=== PATIENT | male | born 1950 | race Caucasian/White ===

== ENCOUNTER 2019-07-03 05:48 | Day surgery (SDC) | payer OTHER ==
[~2019-07-03 05:48] MED LIST: XARELTO20 MG PO
[2019-07-03] MEDS ORDERED: DILT180 PO (06:43)
--- NOTE | 2019-07-03 07:00 | NUR ---
PT SEDATED WITH VERSED 4MG AND SUBLIMAZE 100MCG IVP FOR CARDIOVERSION. PT CARDIOVERTED /C 50J. SR 62BPM POST CARDIOVERSION.
--- NOTE | 2019-07-03 07:39 | NUR ---
PT AWAKE AND VERBALIZING WELL. SR 60BPM. AMB TO THE BATHROOM /S DIFFICULTY.
== END 2019-07-03 23:31 | disposition home or self-care (01) ==
LOC: MHTC 05:48
PROC: 5A2204Z Restoration of Cardiac Rhythm, Single (ICD-10-PCS; principal; 2019-07-03)
DX: I48.92 Unspecified atrial flutter (principal); I10 Essential (primary) hypertension; E78.5 Hyperlipidemia, unspecified; N40.0 Benign prostatic hyperplasia without lower urinary tract symptoms; Z79.01 Long term (current) use of anticoagulants; Z79.899 Other long term (current) drug therapy
CPT/HCPCS: 92960; 93005; 93010; 99152; J2250; J3010; J7030

== ENCOUNTER → 2021-11-18 | Outpatient (CLI) | payer OTHER ==
[~2021-11-18] MED LIST changes: +DILT180 PO
[2021-11-18 13:22] LABS: BASOPHILS ABSOLUTE AUTO 0.04 K/mm3 (0.00-0.23); BASOPHILS PERCENT AUTO 1 % (0-2); EOSINOPHILS ABSOLUTE AUTO 0.14 K/mm3 (0.00-0.68); EOSINOPHILS PERCENT AUTO 2 % (0-6); Hematocrit 45.7 % (37.0-53.0); IMMATURE GRAN ABSOLUTE AUTO 0.04 K/mm3 (0.00-0.10); IMMATURE GRAN PERCENT AUTO 1 % (0-1); LYMPHOCYTES ABSOLUTE AUTO 2.81 K/mm3 (0.84-5.20); LYMPHOCYTES PERCENT AUTO 35 % (21-46); MONOCYTES ABSOLUTE AUTO 0.77 K/mm3 (0.16-1.47); MONOCYTES PERCENT AUTO 10 % (4-13); Mean Corpuscular HGB Conc 32.8 g/dL (31.5-36.5); Mean Corpuscular Volume 85 fL (80-100); NEUTROPHILS ABSOLUTE AUTO 4.17 K/mm3 (1.96-9.15); NEUTROPHILS PERCENT AUTO 52 % (41-73); RDW Standard Deviation 43.8 fL (35.1-46.3); Red Blood Cell Count 5.35 M/mm3 (4.30-5.90); White Blood Cell Count 7.97 K/mm3 (4.00-11.30)
[2021-11-18 13:44] LABS: Mean Platelet Volume 12.1 fL (9.1-12.4); Platelet Count 182 K/mm3 (150-400)
[2021-11-18 14:21] LABS: Alanine Aminotransfer (ALT/SGP 15 U/L (12-78); Albumin, Blood 3.9 g/dL (3.4-5.0); Albumin/Globulin Ratio 1.1 (0.8-1.8); Alk Phos 69 U/L (50-136); Anion Gap 5 mmol/L (6-16); Aspartate Aminotrans (AST/SGOT 17 U/L (12-37); Blood Urea Nitrogen 18 mg/dL (8-24); Bun/Creatinine Ratio 23.9 (12.0-20.0); CHOL/HDL RATIO 4.1; CO2, Blood 27 mmol/L (21-32); Calcium, Blood 9.6 mg/dL (8.5-10.1); Chloride, Blood 107 mmol/L (98-108); Cholesterol 231 mg/dL (50-200); Creatinine, Blood 0.75 mg/dL (0.60-1.20); Globulin, Blood 3.6 g/dL (2.2-4.0); Glomerular Filtration Rate >60 (60-); Glucose, Blood 102 mg/dL (70-99); HDL Cholesterol 57 mg/dL (>39); LDL/HDL RATIO 2.3; Low Density Lipoprotein Chol 133 mg/dL (0-110); Potassium, Blood 4.4 mmol/L (3.5-5.5); Sodium, Blood 139 mmol/L (136-145); Total Protein, Blood 7.5 g/dL (6.4-8.2); Triglycerides 206 mg/dL (30-160); Very Low Density Lipoprot Chol 41 mg/dL (6-32)
== END ==
LOC: LAB SHORT 10:50 → LAB 10:50
PROVIDERS: Family Medicine
DX: Z12.5 Encounter for screening for malignant neoplasm of prostate (principal); Z00.00 Encounter for general adult medical examination without abnormal findings; Z13.29 Encounter for screening for other suspected endocrine disorder; E78.2 Mixed hyperlipidemia
CPT/HCPCS: 80053; 80061; 84443; 85025; G0103

== ENCOUNTER 2022-09-09 12:42 | Day surgery (SDC) | payer OTHER ==
[~2022-09-09] VITALS: Ht 182.9 cm; Wt 94.4 kg
== END 2022-09-09 14:48 | disposition home or self-care (01) ==
LOC: ORSCSDS 12:42
PROVIDERS: Student in an Organized Health Care Education/Training Program
PROC: 0DBM8ZX Excision of Descending Colon, Via Natural or Artificial Opening Endoscopic, Diagnostic (ICD-10-PCS; principal; 2022-09-09 14:00)
PROC: 0DBH8ZX Excision of Cecum, Via Natural or Artificial Opening Endoscopic, Diagnostic (ICD-10-PCS; principal; 2022-09-09 14:00)
PROC: 0DBN8ZX Excision of Sigmoid Colon, Via Natural or Artificial Opening Endoscopic, Diagnostic (ICD-10-PCS; principal; 2022-09-09 14:00)
PROC: 0DBL8ZX Excision of Transverse Colon, Via Natural or Artificial Opening Endoscopic, Diagnostic (ICD-10-PCS; principal; 2022-09-09 14:00)
DX: R19.5 Other fecal abnormalities (principal); D12.0 Benign neoplasm of cecum; D12.3 Benign neoplasm of transverse colon; D12.4 Benign neoplasm of descending colon; D12.5 Benign neoplasm of sigmoid colon; K57.30 Diverticulosis of large intestine without perforation or abscess without bleeding; K64.4 Residual hemorrhoidal skin tags; K64.8 Other hemorrhoids; Z86.010 Personal history of colon polyps; E78.5 Hyperlipidemia, unspecified
CPT/HCPCS: 88305; J2704; J7120